=== PATIENT | male | born 1965 | race Two or more races ===

== ENCOUNTER 2021-09-18 12:54 | Emergency (ER) | payer OTHER ==
[2021-09-18 13:05] VITALS: RESP 19; TEMP 98; BMI 25.2
[2021-09-18 16:22] VITALS: BP 128/84; PULSE 76
== END 2021-09-18 18:07 | disposition home or self-care (01) ==
LOC: JERFT 12:54
PROC: 0H9FXZZ Drainage of Right Hand Skin, External Approach (ICD-10-PCS; principal; 2021-09-18)
DX: L02.511 Cutaneous abscess of right hand (principal)
CPT/HCPCS: 73130-TC-RT-FY; 99283-25

== ENCOUNTER 2023-03-23 12:39 | Emergency (ER) | payer OTHER ==
[2023-03-23 12:51] VITALS: PULSE 92; BMI 25.7
[2023-03-23] MEDS ORDERED: DIPHTH,PERTUSS(ACELL),TET 0.5 ML DISP.SYRIN IM ONE ×2 (13:40→13:43)
[2023-03-23] MEDS ORDERED: BACITRACIN ZINC 15 GM TUBE TOPICAL OINTMENT TP ONE (14:14)
[2023-03-23] MEDS ORDERED: BACITRACIN ZINC 15 GM TUBE TOPICAL OINTMENT ONE (14:16)
[2023-03-23] MEDS ORDERED: IBUPROFEN 600 MG TABLET (FP) PO ONE ×2 (14:37→14:42)
[2023-03-23] MEDS ORDERED: CEPHALEXIN MONOHYDRATE 500 MG CAPSULE (UD) PO ONE (14:38)
[2023-03-23] MEDS ORDERED: CEPHALEXIN MONOHYDRATE 500 MG CAPSULE (UD) ONE (14:42)
[2023-03-23 15:23] VITALS: BP 133/91; RESP 20; TEMP 98.2
== END 2023-03-23 15:36 | disposition home or self-care (01) ==
LOC: JERFT 12:39
PROC: 3E0234Z Introduction of Serum, Toxoid and Vaccine into Muscle, Percutaneous Approach (ICD-10-PCS; principal; 2023-03-23)
DX: S69.91XA Unspecified injury of right wrist, hand and finger(s), initial encounter (principal); W23.1XXA Caught, crushed, jammed, or pinched between stationary objects, initial encounter; Y92.29 Other specified public building as the place of occurrence of the external cause; Y92.009 Unspecified place in unspecified non-institutional (private) residence as the place of occurrence of the external cause
CPT/HCPCS: 73130-TC-RT-FY; 82962; 90715; 93005; 93010; 99284-25

== ENCOUNTER 2023-04-19 04:41 | Emergency (ER) | payer OTHER ==
[2023-04-19 05:16] VITALS: BMI 25.7
[2023-04-19] MEDS ORDERED: FAMOTIDINE 10 MG/ML VIAL IVPB ONE (05:16)
[2023-04-19] MEDS ORDERED: ONDANSETRON 4 MG/2 ML VIAL ONE (05:16)
[2023-04-19] MEDS: FAMOTIDINE 20 MG/50 ML IVPB 20 MG/50 ML MG IVPB ONE (05:22)
[2023-04-19] MEDS: SODIUM CHLORIDE 1,000 ML IV STA (05:22)
[2023-04-19] MEDS: morphine CARPU-JECT 2 MG/1 ML DISP.SYRIN IVPUSH ONE (05:22)
[2023-04-19] MEDS: ONDANSETRON 4 MG/2 ML VIAL IVPUSH ONE (05:22)
[2023-04-19 05:46] LABS: POTASSIUM 3.6 mmol/L (3.5-5.1)
[2023-04-19 05:48] LABS: BLOOD UREA NITROGEN 8.7 mg/dL (7-18); CALCIUM 9.2 mg/dL (8.5-10.1); MAGNESIUM 1.8 mg/dL (1.8-2.4)
[2023-04-19 05:51] LABS: CREATININE 0.9 mg/dL (0.55-1.3)
[2023-04-19 05:53] LABS: BILIRUBIN,TOTAL 1.4 mg/dL (0.2-1); TOT PROT 7.9 g/dl (6.4-8.2)
[2023-04-19 05:56] LABS: N-TERMINAL BNP 34.3 pg/ml (5-125)
[2023-04-19 05:58] LABS: BASO % 0.5 % (0-2.0); EOS % 2.9 % (0-4.5); HEMATOCRIT 46.1 % (35.4-49); HEMOGLOBIN 15.2 GM/dL (11.7-16.9); LYMPH % 28.6 % (8-40); MCH 25.6 pg (25.7-33.7); MCHC 32.9 g/dl (32.0-35.9); MEAN PLT VOLUME 8.7 fl (7.5-11.1); PLATELET COUNT 229 10^3/uL (134-434); RBC 5.91 M/mm3 (4.00-5.60); RDW 13.2 % (11.9-15.9); WHITE BLOOD COUNT 9.4 K/mm3 (4.0-10.0)
[2023-04-19 06:11] LABS: INR 1.06 (0.83-1.09); PROTHROMBIN TIME (PATIENT) 12.3 SEC (9.7-13.0)
[2023-04-19 06:13] LABS: ACTIVATED PTT 32.9 SECONDS (25.2-36.5)
[2023-04-19 06:16] LABS: LACTIC ACID 3.1 mmol/L (0.4-2.0)
[2023-04-19] MEDS: SODIUM CHLORIDE 0.9% 500 ML INFUS.BAG IV ONE ×2 (10:59→14:38)
[2023-04-19 11:32] VITALS: PULSE 67
[2023-04-19 13:36] VITALS: BP 135/75; RESP 20; TEMP 98.2
== END 2023-04-19 14:40 | disposition home or self-care (01) ==
LOC: JER 04:41
PROC: 3E033GC Introduction of Other Therapeutic Substance into Peripheral Vein, Percutaneous Approach (ICD-10-PCS; principal; 2023-04-19)
PROC: 3E033GC Introduction of Other Therapeutic Substance into Peripheral Vein, Percutaneous Approach (ICD-10-PCS; 2023-04-19)
PROC: 3E033GC Introduction of Other Therapeutic Substance into Peripheral Vein, Percutaneous Approach (ICD-10-PCS; 2023-04-19)
DX: K52.9 Noninfective gastroenteritis and colitis, unspecified (principal); E86.0 Dehydration; N28.1 Cyst of kidney, acquired; R42 Dizziness and giddiness; R10.33 Periumbilical pain; R10.31 Right lower quadrant pain; R10.32 Left lower quadrant pain; N40.0 Benign prostatic hyperplasia without lower urinary tract symptoms
CPT/HCPCS: 36415; 70450-TC; 71045-TC-FY; 74174-TC; 76705-TC; 80053; 82962; 83605; 83690; 83735; 83880; 84484; 85025; 85610; 85730; 93005; 93010; 96365; 96375; 99285-25; Q9967

== ENCOUNTER 2023-07-01 04:30 | Emergency (ER) | payer OTHER ==
[2023-07-01 04:37] VITALS: BMI 25.7
[2023-07-01 05:44] LABS: BASO % 1.5 % (0-2.0); EOS % 7.5 % (0-4.5); HEMOGLOBIN 14.5 GM/dL (11.7-16.9); LYMPH % 30.3 % (8-40); MEAN CELL VOLUME 78.7 fl (80-96); MEAN PLT VOLUME 7.9 fl (7.5-11.1); MONO % 8.2 % (3.8-10.2); NEUT % 52.5 % (42.8-82.8); PLATELET COUNT 233 10^3/uL (134-434); RBC 5.59 M/mm3 (4.00-5.60); RDW 13.8 % (11.9-15.9); WHITE BLOOD COUNT 8.1 K/mm3 (4.0-10.0)
[2023-07-01] MEDS ORDERED: ONDANSETRON 4 MG/2 ML VIAL ONE (05:49)
[2023-07-01 05:54] LABS: PH,URINE 6.5 (5.0-8.0); URINE APPEARANCE CLEAR; URINE BILIRUBIN NEGATIVE (NEGATIVE); URINE COLOR YELLOW; URINE GLUCOSE (UA) NEGATIVE (NEGATIVE); URINE KETONE NEGATIVE (NEGATIVE); URINE LEUK ESTERASE NEGATIVE (NEGATIVE); URINE NITRITE NEGATIVE (NEGATIVE); URINE PROTEIN NEGATIVE (NEGATIVE); URINE UROBILINOGEN 0.2 mg/dL (0.2-1.0)
[2023-07-01 06:06] LABS: BLOOD UREA NITROGEN 10.7 mg/dL (7-18); CALCIUM 9.1 mg/dL (8.5-10.1); POTASSIUM 3.8 mmol/L (3.5-5.1)
[2023-07-01 06:08] LABS: CREATININE 0.8 mg/dL (0.55-1.3)
[2023-07-01] MEDS: ONDANSETRON 4 MG/2 ML VIAL IVPUSH ONE (06:09)
[2023-07-01] MEDS: POLYETHYLENE GLYCOL (HEALTHYLAX) 3350 17 GM PACKET PO SCH (06:09)
[2023-07-01 06:10] LABS: BILIRUBIN,TOTAL 1.2 mg/dL (0.2-1)
[2023-07-01] MEDS: POLYETHYLENE GLYCOL (HEALTHYLAX) 3350 17 GM PACKET PO ONE (06:46)
[2023-07-01 10:30] VITALS: BP 118/71; PULSE 74; RESP 16; TEMP 97.9
== END 2023-07-01 10:20 | disposition home or self-care (01) ==
LOC: JER 04:30
PROC: 3E030GC Introduction of Other Therapeutic Substance into Peripheral Vein, Open Approach (ICD-10-PCS; principal; 2023-07-01)
DX: K59.00 Constipation, unspecified (principal); R33.9 Retention of urine, unspecified; R10.84 Generalized abdominal pain
CPT/HCPCS: 36415; 71046-TC-FY; 74177-TC; 80053; 81003; 83615; 83690; 85025; 87086; 93005; 93010; 99285-25; Q9967